=== PATIENT | female | born 1950 | race Caucasian/White ===

== ENCOUNTER 2017-04-23 08:35 | Emergency (ER) | payer OTHER ==
[2017-04-23 08:37] VITALS: BP 179/81; PULSE 101; RESP 17; TEMP 98; O2SAT 98
[2017-04-23 08:59] VITALS: BP 138/67; PULSE 76; RESP 18; O2SAT 100
[2017-04-23] MEDS ORDERED: SODIUM CHLOR 0.9% 1000 ML INJ 1,000 ML IV ONE (09:15)
--- NOTE | 2017-04-23 09:25 | PD ---
HPI Chief Complaint: Pain: Acute or Chronic Time Seen by Provider: 09:12 Travel History International Travel<30 days: No Contact w/Intl Traveler<30days: No Traveled to known affect area: No History of Present Illness HPI Patient is a 66-year-old female who presents to emergency room for evaluation of possible DVT to her left lower extremity. Patient reports that she noticed increased cramping and pain to her left lower leg, reports that she did drive to [place] and drove back to this area on the same day. Reports concerns that she may have a DVT as there is a strong family history of DVT. She reports no history of PE or DVT in her own past history. Patient reports that she has no medical problems does not take any medicines at this time. [facility] Past Medical History Medical History: Denies Significant Hx Tetanus Vaccination: > 5 Years Influenza Vaccination: Yes Past Surgical History Surgical History: No Previous Surgery Social History Alcohol Use: No Tobacco Use: No Substance Use: No Allergies-Medications (Allergen,Severity, Reaction): Coded Allergies: No Known Allergies (Unverified , 04/23/17) Reported Meds & Prescriptions Reported Meds & Active Scripts Active No Active Prescriptions or Reported Medications Review of Systems General / Constitutional: No: Fever Eyes: No: Visual changes HENT: No: Headaches Cardiovascular: No: Chest Pain or Discomfort Respiratory: No: Shortness of Breath Gastrointestinal: No: Abdominal Pain Genitourinary: No: Dysuria Musculoskeletal: Positive: Cramping (left lower extremity camping), No: Pain Skin: No Rash Neurologic: No: Weakness Psychiatric: No: Depression Endocrine: No: Polydipsia Hematologic/Lymphatic: No: Easy Bruising Physical Exam Narrative GENERAL: No acute distress, nontoxic SKIN: Focused skin assessment warm/dry. HEAD: Atraumatic. Normocephalic. NECK: Trachea midline. No JVD. CARDIOVASCULAR: Regular rate and rhythm. No murmur appreciated. RESPIRATORY: No accessory muscle use. Clear to auscultation. Breath sounds equal bilaterally. GASTROINTESTINAL: Abdomen soft, non-tender, nondistended. Hepatic and splenic margins not palpable. MUSCULOSKELETAL: No obvious deformities. No clubbing. No cyanosis. No edema. LLE: patient with calf tenderness with no swelling NEUROLOGICAL: Awake and alert. No obvious cranial nerve deficits. Motor grossly within normal limits. Normal speech. PSYCHIATRIC: Appropriate mood and affect; insight and judgment normal. Data Data Last Documented VS Vital Signs Date Time Temp Pulse Resp B/P Pulse Ox O2 Delivery O2 Flow Rate FiO2 04/23/17 08:59 76 18 138/67 100 Room Air 04/23/17 08:37 98.0 Orders Basic Metabolic Panel (Bmp) (04/23/17 09:15) Prothrombin Time / Inr (Pt) (04/23/17 09:15) Act Partial Throm Time (Ptt) (04/23/17 09:15) Ecg Monitoring (04/23/17 09:15) Iv Access Insert/Monitor (04/23/17 09:15) Us Leg Venous Doppler (04/23/17 ) Sodium Chlor 0.9% 1000 Ml Inj (Ns 1000 M (04/23/17 09:15) Labs Laboratory Tests Test 04/23/17 09:45 Prothrombin Time 10.7 SEC Prothromb Time International 1.0 RATIO Ratio Activated Partial 25.2 SEC Thromboplast Time Sodium Level 138 MEQ/L Potassium Level 3.9 MEQ/L Chloride Level 103 MEQ/L Carbon Dioxide Level 28.6 MEQ/L Anion Gap 6 MEQ/L Blood Urea Nitrogen 21 MG/DL Creatinine 0.81 MG/DL Estimat Glomerular Filtration 71 ML/MIN Rate Random Glucose 124 MG/DL Calcium Level 9.2 MG/DL MDM Medical Decision Making Medical Screen Exam Complete: Yes Emergency Medical Condition: Yes Interpretation(s) Vital Signs Date Time Temp Pulse Resp B/P Pulse Ox O2 Delivery O2 Flow Rate FiO2 04/23/17 08:59 76 18 138/67 100 Room Air 04/23/17 08:37 98.0 101 17 179/81 98 Differential Diagnosis Differential includes muscle strain, electrolyte abnormality, DVT Narrative Course Patient is a 66-year-old female who presents to emergency room to evaluate for possible DVT to her left lower extremity. Patient is concerned for possible DVT as she drove to [place] yesterday and drove back on the same day. Reports strong family history of DVTs in the past, patient currently denies any medical history and does not take any medications at this time. Ultrasound of leg ordered to evaluate for possible DVT. Vital Signs Date Time Temp Pulse Resp B/P Pulse Ox O2 Delivery O2 Flow Rate FiO2 04/23/17 08:59 76 18 138/67 100 Room Air 04/23/17 08:37 98.0 101 17 179/81 98 Last Impressions Lower Extremity Ultrasound 04/23/17 0000 Signed Impressions: Service Date/Time: Sunday, April 23, 2017 09:17 - CONCLUSION: Normal examination. Reji Mckeon MD Patient was given 1 L IV fluids, after IV fluids, patient reports that she is feeling much better at this time. I reviewed with her the ultrasound report and also gave her a copy of her US - Neg for dvt. I encouraged her to have a repeat US in 1 week of swelling and pain persist CBC & BMP Diagram 04/23/17 09:45 Patient reevaluated, patient feeling much better at this time. Patient with Complete resolution of symptoms. Patient will no chest pain or shortness with this time. Discussed with patient need to drink plenty of fluids, patient reports that she drinks a ton of caffeine including multiple shots of espresso and teas a day, she will try to drink plenty of fluids (water) and maintain hydration. She will follow-up in 1 week for repeat ultrasound if symptoms persist. Diagnosis Primary Impression: Leg cramping Additional Impression: Dehydration Patient Instructions: General Instructions Additional Instructions: Please have your ultrasound repeated in 1 week if swelling and cramping persists Please drink plenty of water Return to ER as needed or if symptoms worsen or persist Please follow up with your primary care doctor in 2-3 days Scripts No Active Prescriptions or Reported Meds Disposition: 01 DISCHARGE HOME Condition: Stable Elle Wagner DO Apr 23, 2017 09:25
--- NOTE | 2017-04-23 09:36 | RADRPT ---
EXAM DATE/TIME: 04/23/2017 09:17 [facility] COMPARISON: No previous studies available for comparison. INDICATIONS : Left leg pain. MEDICAL HISTORY : Left leg pain. SURGICAL HISTORY : None. ENCOUNTER: Initial ACUITY: 3 days PAIN SCORE: 3/10 LOCATION: Left leg. TECHNIQUE: Venous ultrasound of the leg was performed from the inguinal ligament to the proximal calf. Real-ruthann e, color Doppler and spectral tracing, compression and augmentation techniques were used. FINDINGS: There is normal compressibility of the deep venous system from the inguinal region to the proximal ca lf. No echogenic clot is seen in the lumen of the common femoral, femoral, popliteal, and posterior tibial veins. There is a normal response of the venous system to proximal and distal augmentation an d respiration. CONCLUSION: Normal examination. Reji Mckeon MD on April 23, 2017 at 9:34 Board Certified Radiologist. This report was verified electronically.
[2017-04-23 10:07] LABS: APTT (PATIENT) 25.2 SEC (24.3-30.1); PROTHROMBIN TIME - PATIENT 10.7 SEC (9.8-11.6)
[2017-04-23 10:15] LABS: BICARBONATE 28.6 MEQ/L (21.0-32.0); POTASSIUM 3.9 MEQ/L (3.5-5.1)
== END 2017-04-23 11:17 | disposition home or self-care (01) ==
LOC: NEPC 08:35
DX: R25.2 Cramp and spasm (principal); E86.0 Dehydration
CPT/HCPCS: 80048; 85610; 85730; 93971; 96360; 99285; J7030